=== PATIENT | female | born 1980 | race African-American/Black ===

== ENCOUNTER 2018-10-10 07:30 | Day surgery (SDC) | payer OTHER ==
[~2018-10-10] VITALS: Ht 154.9 cm; Wt 56.7 kg
[2018-10-10 07:58] VITALS: BP 103/74
[2018-10-10 12:30] VITALS: BP 109/71
== END 2018-10-10 11:20 | disposition home or self-care (01) ==
LOC: GI 07:30 → OR 09:30 → GI 09:30
DX: K21.0 Gastro-esophageal reflux disease with esophagitis (principal); K25.9 Gastric ulcer, unspecified as acute or chronic, without hemorrhage or perforation; K29.70 Gastritis, unspecified, without bleeding; F17.210 Nicotine dependence, cigarettes, uncomplicated; F12.11 Cannabis abuse, in remission; E11.9 Type 2 diabetes mellitus without complications; F20.89 Other schizophrenia; F41.9 Anxiety disorder, unspecified; Z88.8 Allergy status to other drugs, medicaments and biological substances; Z79.899 Other long term (current) drug therapy; Z79.84 Long term (current) use of oral hypoglycemic drugs
CPT/HCPCS: 43235; J1200; J1610; J2250; J2310; J3010; J3490